=== PATIENT | female | born 1975 | race Caucasian/White ===

== ENCOUNTER → 2018-05-12 | Day surgery (SDC) | payer BC ==
[~2018-05-12] VITALS: Ht 171.4 cm; Wt 87.9 kg
[~2018-05-12] MED LIST: *MEPERIDINE 25 MG INJ VIAL PERIprocedural Use ONLY ONE; *morphine SULFATE 4 MG/ML PERIprocedure ONLY ONE; ACETAMINOPHEN 1000 MG/100 ML 100 ML IV ONE; ACETAMINOPHEN/HYDROcodone 325 MG/7.5 MG TAB PO PRN; BETAMETHASONE SOD PHOS/ACETATE SUSP 30 MG/5 ML VIAL ONE; BUPIVACAINE/EPINEPHRINE 0.5% PF 10 ML VIAL ONE; CHLORHEXIDINE GLUCONATE 2 % 1 PACK (2 CLOTHS) TOPICAL PRN; CHLORHEXIDINE GLUCONATE 4% SOLN 120 ML BTL TOPICAL SCH; DEXAMETHASONE SOD PHOS 4 MG/ML VIAL IV ONE; DO NOT ADM ANY ANTICOAGULANT DRUGS PRN; FEXO1TAB97 PO; FLUT1SPR5 EACH NARE; GELATIN 12 MM/7 MM FOAM ONE; GELFOAM SIZE 100 ONE; GENTAMICIN SULFATE 80 MG/2 ML VIAL ONE; GLYCOPYRROLATE 1 MG/5 ML SYRINGE IV PUSH ONE; HYDR-3288 PO; KETOROLAC TROMETHAMINE 30 MG/ML (IVP) VIAL IV PUSH ONE; LACTATED RINGER'S 1000 ML INJ 1,000 ML IV ONE; LACTATED RINGER'S 1000 ML INJ 1,000 ML IV SCH; LACTATED RINGER'S 1000 ML IV PRN; LIDOCAINE HCL 1% PF 5 ML SYRINGE OTHER ONE; METOPROLOL TARTRATE 25 MG TAB PO PRN; MIDAZOLAM HCL 2 MG/2 ML VIAL ONE; MORPHINE SULFATE 4 MG/ML INJ IV PUSH PRN; NEOSTIGMINE 5 MG/5 ML SYRINGE IV PUSH ONE; ONDANSETRON HCL 4 MG/2 ML VIAL IV ONE; PHENYLEPH/NS 1000 MCG/10 ML SYR IV ONE; POVIDONE IODINE 5% (ANTISEPSIS KIT) 4 APPLICATIONS EACH NARE PRN; PROPOFOL 200 MG/20 ML AMP IV ONE; PROPOFOL 500 MG/50 ML INJ 100 ML ONE; SODIUM CHLORID 0.9% 500 ML IV PRN; VANCOMYCIN 1000 MG/NS 250 ML (for <70 kg) IV SCH; VENTAER INH; ceFAZolin 2 GM PREMIX 50 ML IV SCH
--- NOTE | 2018-05-12 13:07 | PD.OP ---
cc: Aiden Dixon. Operative Report Date of Surgery: May 12, 2018 Preoperative Diagnosis: Herniated nucleus pulposus L5-S1, left. Left S1 radiculopathy Postoperative Diagnosis: Same Procedure: Lumbar laminectomy left L5-S1, lateral recess decompression, resection herniated nucleus pulposus. Use of dilation port and microscope Anesthesia: General Surgeon: Aiden Dixon Inside Sales Agent(s): LEIA Liriano Operation and Findings: EBL: 25 cc INDICATION: This patient is a 43-year-old female with severe left leg pain and weakness. Investigative studies shows evidence of a sequestered disc herniation to the left L5-S1 creating a hard left S1 radiculopathy. She presents for surgical treatment. NOTE: Lakeisha Liriano PA-C was present for the entire surgical procedure as my assistant professor of economics. In my medical opinion her skill and care was necessary for the proper management of this patient. PROCEDURE: The patient was brought to the operating room and anesthetized in the supine position. The patient was rolled to a prone position on a Gabe frame on a Maurisio table. All pressure points were protected in the back was scrubbed with alcohol followed by Hibiclens followed by ChloraPrep and draped sterilely. A timeout was done and antibiotics were given. AP and lateral radiographic images were used to identify the proper levels and perform skin markings. We started from the left side at the L5-S1 level. A paramedian incision was made and an off-midline fascial incision was made. A dilating system was placed down to the interlaminar space and held provisionally to the side of the table. The microscope was brought into the field. A high-speed bur under the microscope was used to perform a predominantly left-sided laminectomy from that side. A lateral recess decompression involving the left side was accomplished using straight and angled Kerrison punches. A partial medial facetectomy was accomplished. The crossing and exiting nerve roots were completely decompressed. There was a very large sequestered disc herniation at and extending below the disc space into the lateral recess and severely compressing the crossing left S1 nerve root. The wound was irrigated copiously. A small piece of Gelfoam with Celestone was placed into the epidural space. Hemostasis was controlled. The deep fascia was approximated with interrupted 0 Vicryl suture subcutaneous suture with 2-0 Vicryl suture and skin with running intradermal 3-0 Vicryl followed by Dermabond. A field block with local anesthesia was utilized. A sterile dressing was applied. The sponge count and needle counts and instrument counts were all correct. The patient tolerated the procedure well as taken to the recovery room in satisfactory condition. FINDINGS: There was surprising widening of the facet joint at that level. This level appears unstable. No additional disc fragment was found. The decompression was felt to be very satisfactory Aiden Dixon MD May 12, 2018 13:07
--- NOTE | 2018-05-12 13:57 | RADRPT ---
EXAM DATE: 05/12/2018 1:47 PM EDT AGE/SEX: 43 years / Female INDICATIONS: L5-S1 Laminectomy. CLINICAL DATA: This is the patient's initial encounter. Patient reports that signs and symptoms have been present for 1 day and indicates a pain score of Nonresponsive. MEDICAL/SURGICAL HISTORY: Asthma. Osteoarthritis. Rheumatoid arthritis. Hysterectomy. COMPARISON: No prior exams available for comparison. FINDINGS: A single magnified C-arm spot view is a lateral projection of the lower lumbar spine. Dorsal skin ret ractors are seen projecting towards the L5-S1 disc space level. CONCLUSION: Limited image as detailed above. Electronically signed by: Stevie Barriga MD 05/12/2018 1:56 PM EDT
[2018-05-12 15:45] VITALS: BP 127/75; PULSE 87; RESP 14; TEMP 97.4; O2SAT 98
== END | disposition home or self-care (01) ==
LOC: HSDC 07:56
PROVIDERS: ATTEND Orthopaedic Surgery Orthopaedic Surgery of the Spine
DX: M51.17 Intervertebral disc disorders with radiculopathy, lumbosacral region (principal); M51.27 Other intervertebral disc displacement, lumbosacral region
CPT/HCPCS: 00630; 63030; 72020; J0131; J0690; J0702; J1100; J1580; J1885; J2175; J2250; J2270; J2370; J2405; J2710; J3010; J3370; J7050; J7120